=== PATIENT | female | born 1980 | race Native Hawaiian/Other Pacific Islander ===

== ENCOUNTER 2022-11-29 08:54 | Emergency (ER) | payer OTHER ==
[~2022-11-29] VITALS: Ht 175.3 cm; Wt 68.0 kg
[2022-11-29 09:05] VITALS: TEMP 99
[2022-11-29 09:37] LABS: PLATELET COUNT 257 K/uL (152-353)
[2022-11-29 09:45] LABS: POTASSIUM 3.7 mmol/L (3.6-5.2)
[2022-11-29 15:42] VITALS: BP 123/58
== END 2022-11-29 15:34 | disposition short-term general hospital (02) ==
LOC: ED 08:54
PROVIDERS: Internal Medicine
DX: K55.069 Acute infarction of intestine, part and extent unspecified (principal); Z11.52 Encounter for screening for COVID-19
CPT/HCPCS: 36415; 80053; 81025; 83605; 85027; 87635; 96361; 96365; 96376; 99285; J2270; J2405; J2550; U0003